=== PATIENT | female | born 1955 | race Caucasian/White ===

== ENCOUNTER → 2017-02-07 | Outpatient (CLI) | payer OTHER | LOC: RAD 09:20 | PROVIDERS: ATTEND Internal Medicine | DX: Z12.31 Encounter for screening mammogram for malignant neoplasm of breast (principal) | CPT/HCPCS: 77067 ==

== ENCOUNTER 2017-04-25 11:30 | Outpatient (CLI) | payer OTHER ==
[~2017-04-25] VITALS: Ht 162.6 cm; Wt 121.1 kg
[2017-04-25] MEDS ORDERED: ROSU10TA PO (11:44)
[2017-04-25] MEDS ORDERED: LISI1TAB10 PO (11:44)
[2017-04-25] MEDS ORDERED: METF1000 PO (11:44)
[2017-04-25] MEDS ORDERED: ALLO100T PO (11:44)
[2017-04-25] MEDS ORDERED: SAXA5TAB PO (11:44)
[2017-04-25] MEDS ORDERED: AMLO10TA4 PO (11:44)
[2017-04-25] MEDS ORDERED: PIOG15TA9 PO (11:44)
== END 2017-04-25 12:26 ==
LOC: PREOP 11:30
PROVIDERS: ATTEND Surgery
DX: Z01.818 Encounter for other preprocedural examination (principal); Z12.11 Encounter for screening for malignant neoplasm of colon

== ENCOUNTER 2017-04-27 11:58 | Day surgery (SDC) | payer OTHER ==
[~2017-04-27] VITALS: Ht 162.6 cm; Wt 121.1 kg
--- NOTE | 2017-04-27 09:48 | History & Physicial ---
History of Present Illness History of Present Illness Reason for visit/HPI to undergo a screening colonoscopy Date of Admission Date Seen by Provider: Apr 27, 2017 Time Seen by Provider: 09:47 I consulted on this patient on 04/27/17 09:47 Attending Physician Zayra Brown MD Admitting Physician Marquis Sharma MD Consult Allergies and Home Medications Allergies Coded Allergies: No Known Drug Allergies (Unverified , 04/25/17) Home Medications Allopurinol 100 Mg Tablet, 100 MG PO DAILY, (Reported) Amlodipine Besylate 10 Mg Tablet, 10 MG PO DAILY, (Reported) Lisinopril/Hydrochlorothiazide 1 Each Tablet, 1 EACH PO DAILY, (Reported) Metformin HCl 1,000 Mg Tablet, 1,000 MG PO BID WITH MEALS, (Reported) Pioglitazone HCl 15 Mg Tablet, 15 MG PO DAILY, (Reported) Rosuvastatin Calcium 10 Mg Tablet, 10 MG PO HS, (Reported) Saxagliptin HCl 5 Mg Tablet, 5 MG PO DAILY, (Reported) Past Ghejtgr-Wdfmav-Ewbwrq Hx Patient Social History Employed/Student: employed Constitutional: no symptoms reported EENTM: no symptoms reported Cardiovascular: no symptoms reported Genitourinary: no symptoms reported Musculoskeletal: no symptoms reported Skin: no symptoms reported Psychiatric/Neurological: No Symptoms Reported Physical Exam Vital Signs Capillary Refill : General Appearance: No Apparent Distress HEENT: Normal ENT Inspection Neck: Normal Inspection Respiratory: Lungs Clear Cardiovascular: Regular Rate, Rhythm Gastrointestinal: Non Tender, Soft Rectal: Deferred Extremity: Normal Inspection Neurologic/Psychiatric: Alert, Oriented x3 Skin: Warm/Dry Assessment/Plan Assessment and Plan lady to undergo screening colonoscopy. Discussed in detail. Problems: ZAYRA BROWN MD Apr 27, 2017 9:48 am
[~2017-04-27 11:58] MED LIST: ALLO100T PO; AMLO10TA4 PO; LISI1TAB10 PO; METF1000 PO; PIOG15TA9 PO; ROSU10TA PO; SAXA5TAB PO
--- OUTSIDE RECORDS SUMMARY | 2017-04-27 12:01 | XMS REPORT | Continuity of Care Document ---
Author Author [facility] Organization [facility] Address Unknown Phone Unavailable Allergies Medications Problems Date Dx Coded Attending Type Code Diagnosis Diagnosed By 11/18/2014 Ot V76.12 11/18/2014 Ot V76.12 11/18/2014 Ot V76.12 11/18/2014 SERGIO TAVERA MD Ot V76.12 12/10/2014 SERGIO TAVERA MD Ot V76.12 01/18/2016 Ot V76.12 OTH SCREEN MAMMO-MALIGN NEOPLASM OF [place]RISTIANE 01/18/2016 Ot V76.12 OTH SCREEN MAMMO-MALIGN NEOPLASM OF [place]RISTIANE 01/18/2016 SERGIO TAVERA MD Ot V76.12 OTH SCREEN MAMMO-MALIGN NEOPLASM OF [place]E 01/18/2016 SERGIO TAVERA MD Ot V76.12 OTH SCREEN MAMMO-MALIGN NEOPLASM OF [place] 01/19/2016 SERGIO TAVERA MD Ot Z12.31 ENCNTR SCREEN MAMMOGRAM FOR MALIGNANT NE 02/07/2017 Ot V76.12 OTH SCREEN MAMMO-MALIGN NEOPLASM OF [place] 02/07/2017 SERGIO TAVERA MD Ot V76.12 OTH SCREEN MAMMO-MALIGN NEOPLASM OF [place] 02/07/2017 SERGIO TAVERA MD Ot V76.12 OTH SCREEN MAMMO-MALIGN NEOPLASM OF [place] 02/07/2017 SERGIO TAVERA MD Ot Z12.31 ENCNTR SCREEN MAMMOGRAM FOR MALIGNANT NE Procedures Results Encounters ACCT No. Visit Date/Time Discharge Status Pt. Type Provider Facility Loc./Unit Complaint [id number] 02/07/2017 09:20:00 2016 23:59:59 CLS Outpatient SERGIO TAVERA MD [facility] RAD SCREENING [id number] 01/18/2016 11:05:00 2015 23:59:59 CLS Outpatient SERGIO TAVERA MD [facility] RAD SCREENING [id number] 11/18/2014 09:20:00 2014 23:59:59 CLS Outpatient SERGIO TAVERA MD [facility] RAD SCREENING [id number] 09/10/2013 09:35:00 2013 23:59:59 CLS Outpatient SERGIO TAVERA MD [facility] RAD SCREENING [id number] 08/14/2012 08:40:00 Document Registration [id number] 06/14/2011 14:26:00 Document Registration [id number] 05/09/2010 11:05:00 Document Registration
[2017-04-27] MEDS ORDERED: NS IV 500 ML 500 ML ONE (12:02)
[2017-04-27] MEDS ORDERED: MIDAZOLAM 2 MG/2 ML (VERSED) VIAL ONE ×3 (12:07)
[2017-04-27] MEDS ORDERED: fentaNYL INJECTION 100 MCG/2 ML AMP ONE (12:07)
[2017-04-27] MEDS ORDERED: NS IV 500 ML 500 ML IV PRN (12:15)
--- NOTE | 2017-04-27 12:23 | Conscious Sedation/ASA ---
Conscious Sedation Pre-Proced Time Reviewed: 12:23 ASA Class: 2 Airway Mallampati Classification: ([place] appropriate class) I. II. III, IV Lungs Heart ASA score ASA 1: a normal healthy patient ASA 2: a patient with a mild systemic disease (mid diabetes, controlled hypertension, obesity ASA 3: a patient with a severe systemic disease that limits activity (angina , COPD, prior Myocardial infarction) ASA 4: a patient with an incapacitating disease that is a constant threat to life (CHF, renal failure) ASA 5: a moribund patient not expected to survive 24 hrs. (ruptured aneurysm) ASA 6: a declared brain patient whose organs are being harvested. For emergent operations, add the letter E after the classification Grade 2 Sedation Plan: Discussed options with patient/fam Note The patient is an appropriate candidate to undergo the planned procedure, sedation, and anesthesia. The patient immediately re-assessed prior to indication. ZAYRA BROWN MD Apr 27, 2017 12:23 pm
[2017-04-27 12:24] VITALS: BP 166/74
[2017-04-27] MEDS: fentaNYL INJECTION 100 MCG/2 ML AMP IVP PRN ×2 (12:33→12:42)
[2017-04-27] MEDS: MIDAZOLAM 2 MG/2 ML (VERSED) VIAL IVP PRN ×2 (12:34→12:40)
--- NOTE | 2017-04-27 12:53 | Endo Procedure Record ---
Endo Procedure Report Date of Procedure Apr 27, 2017 Surgeon (s) ZAYRA BROWN MD Post Procedure/Op Diagnosis mild degree of internal hemorrhoids. Procedure Performed colonoscopy to cecum Description of Procedure Anesthesia Type: Conscious Sedation Specimen(s) collected/removed none Description of the Procedure Indication for procedure: This lady came in for screening colonoscopy. She denied any family history of polyps or colon cancer. Informed consent was obtained after reviewing the procedure in detail. Description of the procedure: She was placed in left lateral decubitus position and her vital signs were monitored. Conscious sedation was achieved using Versed and fentanyl. Digital rectal examination was unremarkable. The colonoscope was then introduced in the rectum and advanced all the way up to the cecum. Quality of bowel preparation was excellent. Scope was then withdrawn slowly and the mucosa examined in a systematic fashion. Findings: Mild degree of internal hemorrhoids. No polyps were found. She tolerated the procedure well and was taken back to the nursing area in a stable condition. Impression: Normal screening colonoscopy. No family history. Recommend repeating in 10 years. Copies To: SERGIO TAVERA MD, XAVIER M MD Apr 27, 2017 12:53 pm
--- NOTE | 2017-04-27 12:55 | Discharge Inst-Simple/Standard ---
Discharge Inst-Standard Discharge Medications New, Converted or Re-Newed RX: Other Patient Instructions/Follow Up Plan of Care/Instructions/FU: repeat colonoscopy in 10 years Activity as Tolerated: Yes Discharge Diet: ADA Diet ZAYRA BROWN MD Apr 27, 2017 12:55 pm
[2017-04-27 13:05] VITALS: BP 114/56
[2017-04-27 13:40] VITALS: BP 142/68
[2017-04-27 13:50] VITALS: BP 142/68
== END 2017-04-27 13:51 | disposition home or self-care (01) ==
LOC: ENDO 11:58
PROVIDERS: ATTEND Surgery
DX: Z12.11 Encounter for screening for malignant neoplasm of colon (principal); K64.9 Unspecified hemorrhoids

== ENCOUNTER → 2018-03-01 | Outpatient (CLI) | payer OTHER ==
[~2018-03-01] MED LIST changes: +CATHETER FLUSH 10 ML SYR IV PRN; +DULA0.75 SQ; +IOHEXOL 350 MG/ML 100 ML (OMNIPAQUE 350) VIAL IV ONE; +METF-399 PO; -METF1000 PO; +NS 250 ML (IVPB) BAG IV ONE; +OMEP40CA36 PO; +RECEIVED CONTRAST (Hold Metformin) IV SCH
--- NOTE | 2018-03-05 12:30 | Diagnostic Imaging Report ---
INDICATION: Routine screening. Comparison is made with prior mammogram from 02/07/2017 and 01/17/2016. 2-D and 3-D bilateral screening mammography was performed with CAD. Scattered fibronodular densities are identified bilaterally. Scattered benign-appearing calcifications are noted bilaterally. There are vague nodular densities in both breasts which appear stable. No new mass or malignant appearing microcalcifications are seen. Axillae are unremarkable. IMPRESSION: BI-RADS category 2 No mammographic features suspicious for malignancy are identified. ACR BI-RADS Category 2: Benign findings. Result letter will be mailed to the patient. Note: At least 10% of breast cancer is not imaged by mammography. Dictated by: Dictated on workstation # [id number]
== END ==
LOC: RAD 12:52
PROVIDERS: ATTEND Nurse Practitioner
DX: Z12.31 Encounter for screening mammogram for malignant neoplasm of breast (principal)
CPT/HCPCS: 77067

== ENCOUNTER 2018-03-14 08:15 | Outpatient (CLI) | payer OTHER ==
[~2018-03-14] VITALS: Ht 162.6 cm; Wt 117.0 kg
[~2018-03-14 08:15] MED LIST changes: -CATHETER FLUSH 10 ML SYR IV PRN; -DULA0.75 SQ; -IOHEXOL 350 MG/ML 100 ML (OMNIPAQUE 350) VIAL IV ONE; -NS 250 ML (IVPB) BAG IV ONE; -OMEP40CA36 PO; -RECEIVED CONTRAST (Hold Metformin) IV SCH
[2018-03-14] MEDS ORDERED: OMEP40CA36 PO (08:25)
[2018-03-14] MEDS ORDERED: DULA0.75 SQ (08:25)
== END 2018-03-14 08:41 | disposition home or self-care (01) ==
LOC: PREOP 08:15
PROVIDERS: ATTEND Surgery
DX: Z01.818 Encounter for other preprocedural examination (principal)

== ENCOUNTER 2018-03-18 10:25 | Day surgery (SDC) | payer OTHER ==
[~2018-03-18] VITALS: Ht 162.6 cm; Wt 117.0 kg
[~2018-03-18 10:25] MED LIST changes: +DULA0.75 SQ; +OMEP40CA36 PO
[2018-03-18] MEDS ORDERED: NS IV 500 ML 500 ML IV PRN (10:37)
[2018-03-18] MEDS ORDERED: HURRICAINE EXT TUBE (BENZOCAINE) XX PRN (10:45)
[2018-03-18] MEDS ORDERED: fentaNYL INJECTION 100 MCG/2 ML AMP IVP ONE (10:45)
[2018-03-18] MEDS ORDERED: MIDAZOLAM 2 MG/2 ML (VERSED) VIAL IVP ONE (10:45)
[2018-03-18 10:54] VITALS: BP 140/79
[2018-03-18] MEDS ORDERED: NS IV 500 ML 500 ML ONE (10:56)
[2018-03-18] MEDS ORDERED: MIDAZOLAM 2 MG/2 ML (VERSED) VIAL ONE ×4 (11:28→11:29)
[2018-03-18] MEDS ORDERED: fentaNYL INJECTION 100 MCG/2 ML AMP ONE (11:28)
[2018-03-18] MEDS ORDERED: HURRICAINE EXT TUBE (BENZOCAINE) ONE (11:29)
--- NOTE | 2018-03-18 12:13 | History & Physicial ---
History of Present Illness History of Present Illness Reason for visit/HPI to undergo an upper endoscopy to evaluate thickening of the distal esophagus seen on a CT scan performed to investigate right upper quadrant and back pain. She denies any dysphagia or heartburn. Date of Admission 03/18/18 Date Seen by Provider: Mar 18, 2018 Time Seen by Provider: 11:00 I consulted on this patient on 03/18/18 11:56 Attending Physician Zayra Brown MD Admitting Physician Marquis Sharma MD Consult Allergies and Home Medications Allergies Coded Allergies: No Known Drug Allergies (Unverified , 03/14/18) Home Medications Allopurinol 100 Mg Tablet, 100 MG PO DAILY, (Reported) Amlodipine Besylate 10 Mg Tablet, 10 MG PO DAILY, (Reported) Dulaglutide 0.75 Mg/0.5 Ml Pen.injctr, 0.75 MG SQ WEEKLY, (Reported) Lisinopril/Hydrochlorothiazide 1 Each Tablet, 1 EACH PO DAILY, (Reported) Metformin HCl 1,000 Mg Tablet, 1,000 MG PO BID WITH MEALS, (Reported) Omeprazole 40 Mg Capsule.dr, 40 MG PO DAILY, (Reported) Rosuvastatin Calcium 10 Mg Tablet, 10 MG PO HS, (Reported) Saxagliptin HCl 5 Mg Tablet, 5 MG PO DAILY, (Reported) Patient Home Medication List Home Medication List Reviewed: Yes Past Evsrxkf-Uxuosg-Dgzfpv Hx Patient Social History Marrital Status: single Employed/Student: employed Alcohol Use: Rarely Uses Recreational Drug Use: No Smoking Status: Never a Smoker Recent Foreign Travel: No Contact w/other who traveled: No Recent Hopitalizations: No Recent Infectious Disease Expo: No Immunizations Up To Date Tetanus Booster (TDap): Unknown Date of Influenza Vaccine: Apr 02, 2017 Seasonal Allergies Seasonal Allergies: No Surgeries Yes Hysterectomy Respiratory Currently Using CPAP: No Currently Using BIPAP: No Cardiovascular Yes High Cholesterol, Hypertension Neurological No Reproductive System Hx Reproductive Disorders: No Sexually Transmitted Disease: No HIV/AIDS: No 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 History: Hysterectomy Gastrointestinal Yes Gastroesophageal Reflux, Chronic Diarrhea Musculoskeletal Yes Arthritis, Gout Endocrine Are Your Blood Sugars Over 250: No HEENT Loss of Vision: Bilateral Hearing Impairment: Denies Blood Transfusions Adverse Reaction to a Blood Tr: No (N/A) Review of Systems Constitutional: no symptoms reported EENTM: no symptoms reported Respiratory: no symptoms reported Cardiovascular: no symptoms reported Gastrointestinal: see HPI Genitourinary: no symptoms reported Musculoskeletal: joint pain Skin: no symptoms reported Psychiatric/Neurological: No Symptoms Reported Physical Exam Vital Signs Vital Signs - First Documented 03/18/18 10:54 Temp 98.5 Pulse 79 Resp 18 B/P (MAP) 140/79 (99) Pulse Ox 96 O2 Delivery Room Air Capillary Refill : Height, Weight, BMI Height: 5'4.00" Weight: 258lbs. 0.0oz. [id number]; 44.3 BMI Method: General Appearance: No Apparent Distress Neck: Normal Inspection Gastrointestinal: Non Tender, Soft Neurologic/Psychiatric: Alert, Oriented x3 Skin: Warm/Dry Assessment/Plan Assessment and Plan lady with right upper quadrant and back pain, currently improved. Thickening of the distal esophagus on CT scan. For upper endoscopy Admission Diagnosis Admission Status: Other (Outpt Proc) ZAYRA BROWN MD Mar 18, 2018 12:13
--- NOTE | 2018-03-18 12:17 | Endo Procedure Record ---
Endo Procedure Report Date of Procedure Last Colonoscopy: Yes (2016) Mar 18, 2018 Surgeon (s) ZAYRA BROWN MD Post Procedure/Op Diagnosis esophagitis involving the distal esophagus. Thickening of the mucosa of the gastric fundus, just past the gastroesophageal junction Procedure Performed EGD with biopsy of fundic mucosa [place] cytology of distal esophagus Description of Procedure Anesthesia Type: Conscious Sedation Specimen(s) collected/removed brushings from the distal esophagus for cytology Biopsy from mucosa of the gastric fundus Description of the Procedure indication for the procedure: Evaluation for right upper quadrant pain and lower back pain included a CT scan. This revealed thickening of the distal esophagus, requiring endoscopic evaluation. Informed consent was obtained after reviewing the procedure in detail. Description of the procedure: She was placed in left lateral rectus position and her vital signs were monitored. Conscious sedation was achieved using Versed and fentanyl. The flexible gastroscope was introduced down the esophagus , past the stomach, into the proximal duodenum. Findings: Esophagus: Distal esophagitis without any stricture. [place] cytology was obtained to rule out any dysplasia. Stomach: The mucosa of the proximal fundus, just distal to the gastroesophageal junction was thickened and irregular for about one fourth of the circumference. Multiple biopsies were obtained. The rest of the stomach and duodenum were normal. she tolerated the procedure well and was taken back to the nursing area in a stable condition. Impression: Right upper quadrant and back pain. Thickening of the distal esophagus on CT scan. Changes of esophagitis on endoscopy. Thickened mucosa of the gastric fundus. [place] cytology and biopsy pending. Note: An ultrasound of the gallbladder would be requested as an outpatient. Copy Copies To 1: SERGIO TAVERA MD, XAVIER M MD Mar 18, 2018 12:17
--- NOTE | 2018-03-18 12:18 | Discharge Inst-Simple/Standard ---
Discharge Inst-Standard Discharge Medications New, Converted or Re-Newed RX: Other Patient Instructions/Follow Up Plan of Care/Instructions/FU: we shall call once biopsy reports become available Activity as Tolerated: Yes Discharge Diet: No Restrictions ZAYRA BROWN MD Mar 18, 2018 12:18
[2018-03-18 12:30] VITALS: BP 96/57
[2018-03-18 13:00] VITALS: BP 129/75
[2018-03-18 13:20] VITALS: BP 129/75
== END 2018-03-18 13:20 | disposition home or self-care (01) ==
LOC: ENDO 10:25
PROVIDERS: ATTEND Surgery
DX: K21.0 Gastro-esophageal reflux disease with esophagitis (principal); E78.00 Pure hypercholesterolemia, unspecified; I10 Essential (primary) hypertension; K52.9 Noninfective gastroenteritis and colitis, unspecified; Z79.84 Long term (current) use of oral hypoglycemic drugs; Z79.899 Other long term (current) drug therapy

== ENCOUNTER → 2018-03-27 | Outpatient (CLI) | payer OTHER ==
--- NOTE | 2018-03-27 08:30 | Diagnostic Imaging Report ---
EXAM: RIGHT UPPER QUADRANT ULTRASOUND DATE: March 27, 2018. COMPARISON: CT abdomen and pelvis March 01, 2018. INDICATION: 62-year-old female, right upper quadrant abdominal pain. PROCEDURE: Two-dimensional grayscale and color doppler ultrasound examination of the right upper quadrant is performed. FINDINGS: Liver: Increased in echogenicity compatible with diffuse fatty infiltration of the liver. The outer liver contours are not grossly nodular. There is no sonographically demonstrated solid or cystic liver lesion. The main portal vein appears patent. The liver measures up to approximately 23.4 cm in length. Bile ducts and gallbladder: There is no pericholecystic fluid, gallbladder wall thickening or gallstones. The gallbladder wall measures 0.2 cm. There is no intrahepatic or extrahepatic biliary ductal dilation. The common bile duct measures 0.5 cm. Right kidney: Unremarkable right kidney. No hydronephrosis. The right kidney measures 12.5 cm x 5.0 cm x 5.9 cm. Pancreas: The pancreas is not well seen. IMPRESSION: 1. Diffuse fatty infiltration of the liver. 2. No evidence of cholelithiasis or acute cholecystitis. 3. No biliary ductal dilation. 4. The pancreas is not well seen. Dictated by: Dictated on workstation # [id number]
== END ==
LOC: RAD 06:45
PROVIDERS: ATTEND Surgery
DX: K76.0 Fatty (change of) liver, not elsewhere classified (principal)
CPT/HCPCS: 76705

== ENCOUNTER → 2018-04-19 | Outpatient (CLI) | payer OTHER ==
[~2018-04-19] MED LIST changes: +CATHETER FLUSH 10 ML SYR IV PRN
--- NOTE | 2018-04-19 12:17 | Diagnostic Imaging Report ---
HEPATOBILIARY SCAN DATE: April 19, 2018. INDICATION: 62-year-old female, right upper quadrant abdominal pain. PROCEDURE: 5.45 mCi of Tc-99m Choletec was administered intravenously and serial anterior planar images over the liver and upper abdomen were obtained. FINDINGS: There is clearance of background activity by the liver indicating hepatocyte function. There is radiotracer excretion into the bile ducts with prompt filling of the gallbladder. There is radiotracer extension into small bowel. There is enterogastric reflux. Ensure was administered. Gallbladder ejection fraction was calculated to be 16%. IMPRESSION: 1. No evidence of acute cholecystitis. 2. No evidence of complete common bile duct obstruction. 3. Enterogastric reflux. 4. Gallbladder ejection fraction measured at 16% which is below lower limits of normal and may be seen in the setting of biliary dyskinesia and/or chronic cholecystitis. Dictated by: Dictated on workstation # [id number]
== END ==
LOC: CARD 09:39
PROVIDERS: ATTEND Surgery
DX: K21.9 Gastro-esophageal reflux disease without esophagitis (principal); R10.11 Right upper quadrant pain
CPT/HCPCS: 78227

== ENCOUNTER 2018-05-08 05:36 | Outpatient (CLI) | payer OTHER ==
[~2018-05-08] VITALS: Ht 162.6 cm; Wt 117.0 kg
[~2018-05-08 05:36] MED LIST changes: -CATHETER FLUSH 10 ML SYR IV PRN
== END 2018-05-08 13:47 | disposition home or self-care (01) ==
LOC: PREOP 05:36
PROVIDERS: ATTEND Surgery
DX: Z01.818 Encounter for other preprocedural examination (principal)

== ENCOUNTER 2018-05-15 05:58 | Day surgery (SDC) | payer OTHER ==
[~2018-05-15] VITALS: Ht 162.6 cm; Wt 117.0 kg
[2018-05-15 06:15] VITALS: BP 141/75
[2018-05-15 06:43] LABS: HEMATOCRIT 40 % (35-52); HEMOGLOBIN 13.4 G/DL (11.5-16.0); MEAN CORPUSCULAR HEMOGLOBIN 32 PG (25-34); MEAN CORPUSCULAR HGB CONC 34 G/DL (32-36); MEAN CORPUSCULAR VOLUME 95 FL (80-99); MEAN PLATELET VOLUME 9.9 FL (7.4-10.4); PLATELET COUNT 305 10^3/uL (130-400); RED BLOOD COUNT 4.22 10^6/uL (4.35-5.85); RED CELL DISTRIBUTION WIDTH 12.4 % (10.0-14.5); WHITE BLOOD COUNT 6.7 10^3/uL (4.3-11.0)
[2018-05-15] MEDS ORDERED: metroNIDAZOLE 500MG/100ML IVPB 100 ML IV ONE (06:45)
[2018-05-15] MEDS ORDERED: ceFAZolin 2 GM IV Premixed 50 ML IV ONE (06:45)
[2018-05-15] MEDS ORDERED: ONDANSETRON 4 MG/2 ML (SDV) Z0FRAN ONE (06:48)
[2018-05-15] MEDS ORDERED: NEOSTIGMINE 1 MG/ML 5 ML SYRINGE ONE (06:48)
[2018-05-15] MEDS ORDERED: LIDOCAINE PF 2% 5 ML (XYLOCAINE) VIAL ONE (06:48)
[2018-05-15] MEDS ORDERED: GLYCOPYRROLATE 0.2 MG/ML (ROBINUL) 2 ML VIAL ONE (06:48)
[2018-05-15] MEDS ORDERED: MIDAZOLAM 2 MG/2 ML (VERSED) VIAL ONE (06:48)
[2018-05-15] MEDS ORDERED: ROCURONIUM 10 MG/ML 5 ML SYRINGE IV ONE (06:48)
[2018-05-15] MEDS ORDERED: fentaNYL INJECTION 100 MCG/2 ML AMP ONE (06:48)
[2018-05-15] MEDS ORDERED: proPOfol 200 MG/20 ML (DIPRIVAN) VIAL IV ONE (06:48)
[2018-05-15] MEDS ORDERED: SEVOFLURANE (ULTANE) 15 ML INHAL SOLN ONE ×4 (06:48→08:51)
[2018-05-15] MEDS ORDERED: FAMOTIDINE 20MG/2ML IV (PEPCID) IVP ONE (07:00)
[2018-05-15 07:03] LABS: ALANINE AMINOTRANSFERASE 18 U/L (0-55); ALKALINE PHOSPHATASE 63 U/L (40-136); BILIRUBIN,TOTAL 0.7 MG/DL (0.1-1.0); BUN/CREATININE RATIO 19; CALCIUM 9.7 MG/DL (8.5-10.1); CARBON DIOXIDE 24 MMOL/L (21-32); CHLORIDE 102 MMOL/L (98-107); CREATININE SERUM 0.84 MG/DL (0.60-1.30); GFR ESTIMATED > 60; GLUCOSE 122 MG/DL (70-105); POTASSIUM 3.6 MMOL/L (3.6-5.0); SODIUM 136 MMOL/L (135-145); TOTAL PROTEIN 7.8 GM/DL (6.4-8.2)
[2018-05-15] MEDS ORDERED: BUP/EPI 0.5% 1:200,000 (SENSORCAINE) 30 ML VIAL ONE (07:11)
[2018-05-15] MEDS: LACTATED RINGERS 1,000 ML IV PRN ×2 (07:18→09:20)
--- NOTE | 2018-05-15 07:40 | Progress Note-Pre Operative ---
Pre-Operative Progress Note H&P Reviewed The H&P was reviewed, patient examined and no changes noted. Date Seen by Provider: May 13, 2018 Time Seen by Provider: 15:20 Date H&P Reviewed: May 15, 2018 Time H&P Reviewed: 07:40 Pre-Operative Diagnosis: Chronic acalculous cholecystitis ZAYRA BROWN MD May 15, 2018 07:40
[2018-05-15 08:06] LABS: BASOPHILS # (AUTO) 0.1 10^3/uL (0.0-0.1); BASOPHILS % (AUTO) 1 % (0-10); EOSINOPHILS # (AUTO) 0.4 10^3/uL (0.0-0.3); EOSINOPHILS % (AUTO) 6 % (0-10); LYMPHOCYTES # (AUTO) 1.7 X 10^3 (1.0-4.0); LYMPHOCYTES % (AUTO) 26 % (12-44); MONOCYTES # (AUTO) 0.8 X 10^3 (0.0-1.0); MONOCYTES % (AUTO) 12 % (0-12); NEUTROPHILS # (AUTO) 3.8 X 10^3 (1.8-7.8); NEUTROPHILS % (AUTO) 56 % (42-75)
[2018-05-15] MEDS ORDERED: PHENYLEPHRINE 100 MCG/ML 10 ML (ANESTHESIA) SYR ONE (08:50)
--- NOTE | 2018-05-15 09:00 | Operative Report ---
Operative Report Date of Procedure/Surgery May 15, 2018 Surgeon (s) ZAYRA BROWN MD Utilization Reviewer (s): N/A Post-Operative Diagnosis Same Procedure Performed Robotic-assisted cholecystectomy Description of Procedure Anesthesia Type: General Estimated blood loss (mL): Minimal Specimen(s) collected/removed Gallbladder Description of the Procedure Indication for the procedure: This lady presented with typical symptoms due to chronic, acalculous cholecystitis and reduced ejection fraction of 16 percent. Therefore, it was felt reasonable to offer cholecystectomy using minimally invasive technique robotic assistance. Informed consent was obtained after reviewing the operative details and complications of bile leak and wound infection. Description of the procedure: She was placed supine on the operative table and general anesthesia induced 2 g of Ancef and 500 mg of Flagyl were administered intravenously as prophylaxis against wound infection. Sequential compression devices were placed around her legs, to minimize the risk of venous thrombosis. Abdomen was prepared and draped in the usual manner. Due to previous abdominal surgery using a midline incision, I elected to establish pneumoperitoneum using a Veress needle introduced over the left subcostal margin. Intra-abdominal pressure was maintained at 17 mmHg(obesity). A 5 mm trocar was placed and anatomy visualized using the conventional laparoscope. Omentum was adherent to the undersurface of the scar. Under direct view, I placed an 8 mm trocar over the left side of the abdomen and took down the adhesions under direct view. Subsequently, I was able to place a 12 mm trocar superior to the umbilicus, followed by an 8 mm trocar over the left side of the abdomen. We, then, switched to the robotic system, that was docked in place. The fundus of the gallbladder was retracted cephalad. Due to the gallbladder being tense, it was decompressed to facilitate dissection. It was rather intrahepatic and by sharp dissection around the neck of the gallbladder, cystic duct and artery were delineated. Both were controlled using locking clips. Cholecystectomy was completed using the hook cautery. The gallbladder was then placed in an Endo Catch bag and removed via the supraumbilical trocar site. Prior to this, bile was suctioned and the area irrigated with saline. The fascia over the supraumbilical incision was closed using #1 Vicryl using the Waqas Hernandez device, under direct view. Skin incisions were closed using 4-0 Vicryl, in a subcuticular fashion 0.5 percent Marcaine with epinephrine was infiltrated along the incisions, both preemptively and at the conclusion of the operation. She tolerated the procedure well, was extubated in the operating room and taken to the recovery room in a stable condition. Findings of the Procedure see op report Allergies and Home Medications Allergies Coded Allergies: No Known Drug Allergies (Unverified , 03/14/18) Home Medications Allopurinol 100 Mg Tablet, 100 MG PO DAILY, (Reported) Amlodipine Besylate 10 Mg Tablet, 10 MG PO DAILY, (Reported) Dulaglutide 0.75 Mg/0.5 Ml Pen.injctr, 0.75 MG SQ WEEKLY, (Reported) Lisinopril/Hydrochlorothiazide 1 Each Tablet, 1 EACH PO DAILY, (Reported) Metformin HCl 1,000 Mg Tablet, 1,000 MG PO BID WITH MEALS, (Reported) Omeprazole 40 Mg Capsule.dr, 40 MG PO DAILY, (Reported) Rosuvastatin Calcium 10 Mg Tablet, 10 MG PO HS, (Reported) Saxagliptin HCl 5 Mg Tablet, 5 MG PO DAILY, (Reported) Patient Home Medication List Home Medication List Reviewed: Yes ZAYRA BROWN MD May 15, 2018 09:00
[2018-05-15] MEDS ORDERED: ACHD5005 PO (09:01)
--- NOTE | 2018-05-15 09:02 | Discharge Inst-Simple/Standard ---
Discharge Inst-Standard Discharge Medications New, Converted or Re-Newed RX: RX on Chart Patient Instructions/Follow Up Plan of Care/Instructions/FU: Band-Aids off in 48 hours. Incentive vomited. Follow-up in 3 weeks. Activity as Tolerated: Yes Discharge Diet: No Restrictions ZAYRA BROWN MD May 15, 2018 09:02
[2018-05-15] MEDS ORDERED: morphine INJ 10 MG/ML 1ML (SYR OR VIAL) ONE (09:05)
[2018-05-15] MEDS ORDERED: morphine INJ 10 MG/ML 1ML (SYR OR VIAL) IVP ONE ×2 (09:15→09:30)
[2018-05-15] MEDS ORDERED: ONDANSETRON 4 MG/2 ML (SDV) Z0FRAN IVP PRN (09:15)
[2018-05-15] MEDS ORDERED: HYDROmorphone 2 MG/ML VIAL (DILAUDID) ONE (09:27)
[2018-05-15] MEDS ORDERED: HYDROmorphone 2 MG/ML VIAL (DILAUDID) IV ONE (09:30)
[2018-05-15 10:30] VITALS: BP 133/67
[2018-05-15 10:35] VITALS: BP 133/67
[2018-05-15 11:00] VITALS: BP 121/60
[2018-05-15 11:30] VITALS: BP 112/59
--- NOTE | 2018-05-15 13:04 | Anesthesia-General Post-Op ---
General Patient Condition Mental Status/LOC: Same as Preop Cardiovascular: Satisfactory Nausea/Vomiting: Absent Respiratory: Satisfactory Pain: Controlled Complications: Absent Post Op Complications Complications None Follow Up Care/Instructions Patient Instructions None needed. Anesthesia/Patient Condition Patient Condition Patient is doing well, no complaints, stable vital signs, no apparent adverse anesthesia problems. No complications reported per nursing. DOUGLAS WANG CRNA May 15, 2018 13:04
== END 2018-05-15 11:55 | disposition home or self-care (01) ==
LOC: SDC 05:58
PROVIDERS: ATTEND Surgery
DX: K81.1 Chronic cholecystitis (principal); I10 Essential (primary) hypertension; E11.9 Type 2 diabetes mellitus without complications; K21.9 Gastro-esophageal reflux disease without esophagitis; E66.01 Morbid (severe) obesity due to excess calories; Z68.41 Body mass index [BMI] 40.0-44.9, adult
CPT/HCPCS: 36415; 80053; 82962; 85025; 85027; 87081; 88304

== ENCOUNTER → 2019-03-19 | Outpatient (CLI) | payer OTHER ==
[~2019-03-19] MED LIST changes: +ACHD5005 PO; -ROSU10TA PO; +ROSU10TA22 PO
--- NOTE | 2019-03-19 10:34 | Diagnostic Imaging Report ---
Indication: Routine screening. Comparison is made with prior mammogram 03/01/2018 and 02/07/2017. 2-D and 3-D bilateral screening mammography was performed with CAD. Scattered fibroglandular densities are identified bilaterally. Scattered benign-appearing parenchymal and vascular calcifications are identified bilaterally. Benign nodule in the medial right breast is stable. No new mass or malignant-appearing microcalcifications are seen. Axillae are unremarkable. Impression: BI-RADS category 2 No mammographic features suspicious for malignancy are identified. ACR BI-RADS Category 2: Benign findings. Result letter will be mailed to the patient. Note: At least 10% of breast cancer is not imaged by mammography. Dictated by: Dictated on workstation # [id number]
== END ==
LOC: RAD 07:44
PROVIDERS: ATTEND Internal Medicine
DX: Z12.31 Encounter for screening mammogram for malignant neoplasm of breast (principal)
CPT/HCPCS: 77067

== ENCOUNTER → 2020-06-09 | Outpatient (CLI) | payer OTHER ==
[~2020-06-09] MED LIST changes: -LISI1TAB10 PO; +LISI1TAB26 PO; +OMEP40CA27 PO; -OMEP40CA36 PO
--- NOTE | 2020-06-09 10:23 | Diagnostic Imaging Report ---
INDICATION: Routine screening. COMPARISON: 03/19/2019 and 03/01/2018. TECHNIQUE: 2D and 3D bilateral screening mammography was performed with CAD. FINDINGS: Scattered fibroglandular densities are identified bilaterally. There are benign calcifications in both breasts. A benign nodule in the right breast is stable. No new mass or malignant appearing microcalcifications are seen. The axillae are unremarkable. IMPRESSION: No mammographic features suspicious for malignancy are identified. ACR BI-RADS Category 2: Benign findings. Result letter will be mailed to the patient. Note: At least 10% of breast cancer is not imaged by mammography. Dictated by: Dictated on workstation # [id number]
== END ==
LOC: RAD 07:48
PROVIDERS: ATTEND Internal Medicine
DX: Z12.31 Encounter for screening mammogram for malignant neoplasm of breast (principal)
CPT/HCPCS: 77063; 77067

== ENCOUNTER → 2021-06-15 | Outpatient (CLI) | payer OTHER ==
[~2021-06-15] MED LIST changes: -LISI1TAB26 PO; +LISI1TAB48 PO; -OMEP40CA27 PO; +OMEP40CA6 PO
--- NOTE | 2021-06-15 10:09 | Diagnostic Imaging Report ---
INDICATION: Routine screening. COMPARISON: 06/09/2020 and 03/19/2019. TECHNIQUE: 2D and 3D bilateral screening mammography was performed with CAD. FINDINGS: Scattered fibroglandular densities are identified bilaterally. A small nodule in the medial right breast is stable. There are scattered benign calcifications. No new mass or malignant-appearing microcalcifications are seen. The axillae are unremarkable. IMPRESSION: No mammographic features suspicious for malignancy are identified. ACR BI-RADS Category 2: Benign findings. Result letter will be mailed to the patient. Note: At least 10% of breast cancer is not imaged by mammography. Dictated by: Dictated on workstation # [id number]
== END ==
LOC: RAD 07:48
PROVIDERS: ATTEND Internal Medicine
DX: Z12.31 Encounter for screening mammogram for malignant neoplasm of breast (principal)
CPT/HCPCS: 77063; 77067

== ENCOUNTER → 2022-06-21 | Outpatient (CLI) | payer OTHER ==
[~2022-06-21] MED LIST changes: +NF-CRES10T PO; -ROSU10TA22 PO
--- NOTE | 2022-06-21 21:12 | Diagnostic Imaging Report ---
INDICATION: Routine screening. COMPARISON: Prior mammograms from 06/15/2021 and 06/09/2020. EXAMINATION: 2D and 3D bilateral screening mammography was performed with CAD. The current study was also evaluated with a Computer Aided Detection (CAD) system. FINDINGS: Scattered fibroglandular densities are identified, bilaterally. There are benign calcifications, bilaterally. No mass or malignant-appearing microcalcifications are seen. Axillae are unremarkable. IMPRESSION: No mammographic features suspicious for malignancy are identified. Dictated by: Dictated on workstation # [id number]
== END ==
LOC: RAD 10:41
PROVIDERS: ATTEND Internal Medicine
DX: Z12.31 Encounter for screening mammogram for malignant neoplasm of breast (principal)
CPT/HCPCS: 77063; 77067